=== PATIENT | female | born 1970 | race African-American/Black ===

== ENCOUNTER 2018-12-25 05:42 | Inpatient (IN) | payer BC, MEDICAID ==
[2018-12-25] MEDS ORDERED: PROPOFOL 200 MG INJ (07:00)
[2018-12-25] MEDS ORDERED: NEOSTIGMINE 3 MG/3 ML SYRINGE (07:00)
[2018-12-25] MEDS ORDERED: CEFAZOLIN 1 GM INJ (07:00)
[2018-12-25] MEDS ORDERED: SUCCINYLCHOLINE CHLORIDE 100 MG/5 ML SYG IV (07:00)
[2018-12-25] MEDS ORDERED: ROCURONIUM 50 MG INJ (07:00)
[2018-12-25] MEDS ORDERED: LIDOCAINE 2% (SDV) 5 ML INJ (07:00)
[2018-12-25] MEDS ORDERED: GLYCOPYRROLATE 0.4 MG INJ (07:00)
[2018-12-25] MEDS ORDERED: DESFLURANE 15 MIN (07:00)
[2018-12-25] MEDS ORDERED: DIPHENHYDRAMINE 50 MG INJ IV (07:30)
[2018-12-25] MEDS ORDERED: METOCLOPRAMIDE 10 MG INJ IV (07:30)
[2018-12-25] MEDS ORDERED: HYDROmorphONE 1 MG/5 ML IV SYRINGE IV (07:30)
[2018-12-25] MEDS ORDERED: FENTAnyl 50 MCG/ML VIAL IV ×2 (07:30)
[2018-12-25] MEDS ORDERED: ALBUTEROL 0.083% (NEB) 2.5 MG/3 ML AMP HHN (07:30)
[2018-12-25] MEDS ORDERED: FENTAnyl 50 MCG/ML VIAL ×3 (07:41→12:41)
[2018-12-25] MEDS ORDERED: MIDAZOLAM 1 MG/ML 2 ML INJ (07:59)
[2018-12-25] MEDS ORDERED: LACTATED RINGER'S 1,000 ML IV* (08:00)
[2018-12-25] MEDS: CEFAZOLIN 2 GM/50 ML (PMX) 50 ML IVPB (08:00)
[2018-12-25] MEDS: BUPIVACAINE 0.5%/EPI (SDV) 30 ML INJ (08:26)
[2018-12-25] MEDS: POLYMYXIN/BACITRACIN 1L IRRIG (08:32)
[2018-12-25] MEDS: THROMBIN (BOVINE) 5,000 UNIT VIAL TP (08:33)
[2018-12-25] MEDS: SURGIFOAM POWDER 1 GM KIT (08:33)
[2018-12-25] MEDS ORDERED: GELATIN SIZE 100 SPONGE (09:46)
[2018-12-25] MEDS ORDERED: THROMBIN (BOVINE) 5,000 UNIT VIAL TP ×2 (10:58→12:39)
[2018-12-25] MEDS ORDERED: SURGIFOAM POWDER 1 GM KIT (10:58)
[2018-12-25] MEDS ORDERED: DEXTROSE 5%-0.45% NACL 1,000 ML IV (13:43)
[2018-12-25] MEDS: HYDROmorphONE 1 MG/5 ML IV SYRINGE IV ×2 (13:52→13:59)
[2018-12-25] MEDS ORDERED: ONDANSETRON 4 MG INJ IV (14:00)
[2018-12-25] MEDS ORDERED: NACL 0.9% 3 ML SYG IV (14:00)
[2018-12-25] MEDS ORDERED: ACETAMINOPHEN 325 MG TAB PO (14:00)
[2018-12-25] MEDS ORDERED: PROCHLORPERAZINE 10 MG TAB PO (14:00)
[2018-12-25] MEDS ORDERED: HYDROCODONE/APAP (5/325) TAB PO ×2 (14:00)
[2018-12-25] MEDS ORDERED: NALOXONE (0.4 MG/ML) INJ IV (14:00)
[2018-12-25] MEDS: HYDROmorphONE 0.2 MG/ML PCA IV ×2 (14:18→19:38)
[2018-12-25 14:29] LABS: ADD UMIC YES; UR ASCORBIC ACID NEGATIVE (NEGATIVE); UR BACTERIA FEW /HPF (NONE SEEN); UR BILIRUBIN (Dip) NEGATIVE (NEGATIVE); UR BLOOD (Dip) 1+ mg/dL (NEGATIVE); UR CLARITY CLOUDY (CLEAR); UR COLOR YELLOW (YELLOW); UR GLUCOSE (Dip) NEGATIVE (NEGATIVE); UR KETONES (Dip) TRACE mg/dL (NEGATIVE); UR LEUKOCYTE ESTERASE (Dip) NEGATIVE Leu/ul (NEGATIVE); UR MUCUS FEW /HPF (NONE SEEN); UR NITRITE (Dip) NEGATIVE (NEGATIVE); UR RBC 8 /HPF (0-5); UR SPECIFIC GRAVITY (Dip) 1.026 (1.003-1.030); UR TOTAL PROTEIN (Dip) 1+ mg/dl (NEGATIVE); UR UROBILINOGEN (Dip) NEGATIVE (NEGATIVE); UR WBC 4 /HPF (0-5)
[2018-12-25] MEDS: MEPERIDINE 25 MG INJ IV (14:31)
[2018-12-25 14:36] LABS: HEMOGLOBIN 11.5 g/dl (12.0-16.0)
[2018-12-25] MEDS: FENTAnyl 50 MCG/ML VIAL IV ×2 (14:48→15:04)
[2018-12-25] MEDS: ONDANSETRON 4 MG INJ IV (14:56)
[2018-12-25] MEDS: SOD CHLORIDE 0.9% 1,000 ML IV ×2 (15:00→19:27)
[2018-12-25] MEDS: CEFAZOLIN 1 GM/50 ML (PMX) 50 ML IVPB (17:51)
[2018-12-25] MEDS: DIAZEPAM 5 MG TAB PO (17:51)
[2018-12-25] MEDS: FLUTICASONE 0.05% 16 GM NAS SPRAY NASAL (21:53)
[2018-12-25] MEDS: GABAPENTIN 300 MG CAP PO (21:53)
[2018-12-26] MEDS: CEFAZOLIN 1 GM/50 ML (PMX) 50 ML IVPB ×3 (00:45→12:02)
[2018-12-26] MEDS: HYDROmorphONE 0.2 MG/ML PCA IV ×2 (01:49→08:33)
[2018-12-26 05:22] LABS: HEMATOCRIT 28.5 % (37.0-47.0); HEMOGLOBIN 9.3 g/dl (12.0-16.0)
[2018-12-26] MEDS: LEVOTHYROXINE 100 MCG TAB PO (05:29)
[2018-12-26 05:35] LABS: ANION GAP 4 (5-13); BLOOD UREA NITROGEN 6 mg/dl (7-20); CALCIUM 9.3 mg/dl (8.4-10.2); CARBON DIOXIDE 28 mmol/L (21-31); CHLORIDE 109 mmol/L (97-110); CREATININE 0.55 mg/dl (0.44-1.00); Estimated GFR > 60 mL/min (>60); GLUCOSE 117 mg/dl (70-220); POTASSIUM 4.4 mmol/L (3.5-5.1); SODIUM 141 mmol/L (135-144)
[2018-12-26] MEDS: FLUTICASONE 0.05% 16 GM NAS SPRAY NASAL ×2 (08:32→20:03)
[2018-12-26] MEDS: GABAPENTIN 300 MG CAP PO ×2 (08:32→20:02)
[2018-12-26] MEDS: CHOLECALCIFEROL 2,000 UNIT CAP NGT (08:32)
[2018-12-26] MEDS: DOCUSATE SODIUM 100 MG CAP PO ×2 (08:32→20:02)
[2018-12-26] MEDS ORDERED: CHOLECALCIFEROL 1,000 UNIT TAB PO (09:00)
[2018-12-26] MEDS: FLUOXETINE 10 MG CAP PO (09:00)
[2018-12-26] MEDS: ACETAMINOPHEN 1000MG/100ML IV 100 ML IVPB (14:08)
[2018-12-26] MEDS: OXYCODONE/ACETAMINOPHEN (10/325) TAB PO ×2 (15:45→20:01)
[2018-12-26] MEDS: SOD CHLORIDE 0.9% 1,000 ML IV (16:00)
[2018-12-26] MEDS: HYDROmorphONE 0.5 MG/0.5 ML SYG IV ×2 (18:42→23:21)
[2018-12-27] MEDS: OXYCODONE/ACETAMINOPHEN (10/325) TAB PO ×5 (00:27→22:03)
[2018-12-27] MEDS: ACETAMINOPHEN 1000MG/100ML IV 100 ML IVPB (01:16)
[2018-12-27] MEDS: SOD CHLORIDE 0.9% 1,000 ML IV ×3 (04:30→22:18)
[2018-12-27 05:11] LABS: ADD MAN DIFF? NO
[2018-12-27 05:20] LABS: BASOPHILS % 0.3 % (0.0-2.0); EOSINOPHILS # 0.1 10^3/ul (0.0-0.5); EOSINOPHILS % 1.6 % (0.0-7.0); HEMATOCRIT 28.5 % (37.0-47.0); HEMOGLOBIN 9.2 g/dl (12.0-16.0); LYMPHOCYTES # 1.5 10^3/ul (0.8-2.9); LYMPHOCYTES % 19.9 % (15.0-51.0); MEAN CORPUSCULAR HEMOGLOBIN 30.6 pg (29.0-33.0); MEAN CORPUSCULAR HGB CONC 32.3 g/dl (32.0-37.0); MEAN CORPUSCULAR VOLUME 94.7 fl (82.0-101.0); MEAN PLATELET VOLUME 11.3 fl (7.4-10.4); MONOCYTE # 0.6 10^3/ul (0.3-0.9); NEUTROPHIL # 5.4 10^3/ul (1.6-7.5); NEUTROPHILS % 69.9 % (39.0-77.0); PLATELET COUNT 164 10^3/UL (140-415); RED BLOOD COUNT 3.01 10^6/ul (4.20-5.40)
[2018-12-27 05:20] LABS: WHITE BLOOD COUNT 7.6 10^3/ul (4.8-10.8)
[2018-12-27 05:40] LABS: ANION GAP 4 (5-13); BLOOD UREA NITROGEN 3 mg/dl (7-20); CALCIUM 9.3 mg/dl (8.4-10.2); CARBON DIOXIDE 29 mmol/L (21-31); CHLORIDE 107 mmol/L (97-110); CREATININE 0.54 mg/dl (0.44-1.00); Estimated GFR > 60 mL/min (>60); GLUCOSE 99 mg/dl (70-220); MAGNESIUM 1.6 mg/dl (1.7-2.5); POTASSIUM 3.6 mmol/L (3.5-5.1); SODIUM 140 mmol/L (135-144)
[2018-12-27] MEDS: CHOLECALCIFEROL 2,000 UNIT CAP NGT (08:50)
[2018-12-27] MEDS: BISACODYL 10 MG SUPP PR (08:50)
[2018-12-27] MEDS: DOCUSATE SODIUM 100 MG CAP PO ×2 (08:51→20:43)
[2018-12-27] MEDS: GABAPENTIN 300 MG CAP PO ×2 (08:51→20:43)
[2018-12-27] MEDS: MAGNESIUM SULFATE 2 GM/50 ML 50 ML IVPB (10:01)
[2018-12-27] MEDS: FLUTICASONE 0.05% 16 GM NAS SPRAY NASAL ×2 (10:33→21:00)
[2018-12-27 12:33] LABS: ADD UMIC YES; UR ASCORBIC ACID NEGATIVE (NEGATIVE); UR BILIRUBIN (Dip) NEGATIVE (NEGATIVE); UR BLOOD (Dip) 1+ mg/dL (NEGATIVE); UR CLARITY CLEAR (CLEAR); UR COLOR RED (YELLOW); UR GLUCOSE (Dip) NEGATIVE (NEGATIVE); UR KETONES (Dip) TRACE mg/dL (NEGATIVE); UR LEUKOCYTE ESTERASE (Dip) NEGATIVE Leu/ul (NEGATIVE); UR MUCUS FEW /HPF (NONE SEEN); UR NITRITE (Dip) NEGATIVE (NEGATIVE); UR RBC 0 /HPF (0-5); UR SPECIFIC GRAVITY (Dip) 1.003 (1.003-1.030); UR SQUAMOUS EPITHELIAL CELL FEW /HPF (FEW); UR TOTAL PROTEIN (Dip) NEGATIVE (NEGATIVE); UR UROBILINOGEN (Dip) NEGATIVE (NEGATIVE); UR WBC 1 /HPF (0-5)
[2018-12-27] MEDS: METHOCARBAMOL 500 MG TAB PO (14:35)
[2018-12-27] MEDS: AL HYDROX/MG HYDROX/SIMETH 30 ML CUP PO (14:35)
[2018-12-27] MEDS: HYDROmorphONE 0.5 MG/0.5 ML SYG IV ×2 (16:32→20:31)
[2018-12-28] MEDS: METHOCARBAMOL 500 MG TAB PO (00:29)
[2018-12-28] MEDS: HYDROmorphONE 0.5 MG/0.5 ML SYG IV (00:45)
[2018-12-28] MEDS: OXYCODONE/ACETAMINOPHEN (10/325) TAB PO ×3 (04:04→14:38)
[2018-12-28 05:05] LABS: ADD MAN DIFF? NO
[2018-12-28 05:10] LABS: WHITE BLOOD COUNT 6.6 10^3/ul (4.8-10.8)
[2018-12-28 05:10] LABS: BASOPHILS % 0.5 % (0.0-2.0); EOSINOPHILS # 0.2 10^3/ul (0.0-0.5); EOSINOPHILS % 3.2 % (0.0-7.0); HEMATOCRIT 26.6 % (37.0-47.0); HEMOGLOBIN 8.8 g/dl (12.0-16.0); LYMPHOCYTES # 1.8 10^3/ul (0.8-2.9); LYMPHOCYTES % 26.7 % (15.0-51.0); MEAN CORPUSCULAR HGB CONC 33.1 g/dl (32.0-37.0); MEAN CORPUSCULAR VOLUME 93.7 fl (82.0-101.0); MONOCYTE # 0.6 10^3/ul (0.3-0.9); MONOCYTES % 8.7 % (0.0-11.0); NEUTROPHILS % 60.6 % (39.0-77.0); PLATELET COUNT 163 10^3/UL (140-415); RED BLOOD COUNT 2.84 10^6/ul (4.20-5.40); RED CELL DISTRIBUTION WIDTH 12.8 % (11.5-14.5)
[2018-12-28 05:28] LABS: ANION GAP 5 (5-13); BLOOD UREA NITROGEN 3 mg/dl (7-20); CALCIUM 9.3 mg/dl (8.4-10.2); CARBON DIOXIDE 27 mmol/L (21-31); CHLORIDE 108 mmol/L (97-110); CREATININE 0.55 mg/dl (0.44-1.00); Estimated GFR > 60 mL/min (>60); GLUCOSE 100 mg/dl (70-220); POTASSIUM 3.9 mmol/L (3.5-5.1); SODIUM 140 mmol/L (135-144)
[2018-12-28 08:47] LABS: IRON 12 ug/dl (35-150)
[2018-12-28 08:57] LABS: % IRON SATURATION 5 % SAT (22-52); TOTAL IRON BINDING CAPACITY 248 ug/dl (241-421)
[2018-12-28] MEDS: CHOLECALCIFEROL 2,000 UNIT CAP NGT (09:37)
[2018-12-28] MEDS: DOCUSATE SODIUM 100 MG CAP PO (09:37)
[2018-12-28] MEDS: FLUTICASONE 0.05% 16 GM NAS SPRAY NASAL (09:38)
[2018-12-28] MEDS: AL HYDROX/MG HYDROX/SIMETH 30 ML CUP PO (09:38)
[2018-12-28] MEDS: GABAPENTIN 300 MG CAP PO (09:38)
[2018-12-28] MEDS: NA PHOSPHATE/BIPHOS 133 ML ENEMA PR (13:07)
== END 2018-12-28 16:30 | disposition home or self-care (01) | DRG 455 ==
LOC: REC 05:42 → MS1 15:24
PROC: 0SG00AJ Fusion of Lumbar Vertebral Joint with Interbody Fusion Device, Posterior Approach, Anterior Column, Open Approach (ICD-10-PCS; principal; 2018-12-25 07:30)
PROC: 0SG00K1 Fusion of Lumbar Vertebral Joint with Nonautologous Tissue Substitute, Posterior Approach, Posterior Column, Open Approach (ICD-10-PCS; 2018-12-25 07:30)
PROC: 0SB20ZZ Excision of Lumbar Vertebral Disc, Open Approach (ICD-10-PCS; 2018-12-25 07:30)
PROC: 0SB00ZZ Excision of Lumbar Vertebral Joint, Open Approach (ICD-10-PCS; 2018-12-25 07:30)
PROC: 4A11X4G Monitoring of Peripheral Nervous Electrical Activity, Intraoperative, External Approach (ICD-10-PCS; 2018-12-25 07:30)
DX: M43.16 Spondylolisthesis, lumbar region (principal); M54.16 Radiculopathy, lumbar region; M48.061 Spinal stenosis, lumbar region without neurogenic claudication; M71.38 Other bursal cyst, other site
CPT/HCPCS: 72110; 80048; 81001; 82728; 83540; 83735; 84100; 85014; 85018; 85025; 86850; 86900; 86901; 87086; 88305; 97110; 97116; 97161; 97530